=== PATIENT | female | born 1970 | race Caucasian/White ===

== ENCOUNTER → 2020-08-24 | Outpatient (CLI) | payer MEDICARE, MEDICAID ==
[~2020-08-24] MED LIST: AMLODIPINE BESYL5 MG PO; ATORVASTATIN CA40 MG PO; BRIMONIDINE TAR10 ML OP; BYDUREON B2 MG/0.85 SQ; FLUOXETINE HCL20 MG PO; GLIPIZIDE ER2.5 MG PO; LANTUS SOLOS100 U/ML SQ; LATANOPROST 2.2.5 ML OU; LEVOTHYROXIN0.025 MG PO; LOPRESSOR 225 MG/TAB PO; LOPRESSOR 550 MG/TAB PO; LOSARTAN POTAS100 MG PO; LOSARTAN POTASS25 MG PO; OMEPRAZOLE40 MG PO; TIMOLOL 0.5% OP10 ML OS
[2020-08-24 10:49] LABS: BASO # 0.05 (0.02-0.10); EOS # 0.11 (0.04-0.40); EOS % 1.9 % (1.0-5.0); HEMATOCRIT 39.7 % (37.0-47.0); HEMOGLOBIN 13.1 g/dL (12.5-16.0); LYMPH# 1.46 (1.50-4.00); MEAN CELL VOLUME 93 fl (78-100); MEAN CORPUSCULAR HEMOGLOBIN 31 pg (27-31); MEAN CORPUSCULAR HGB CONC 33 g/dL (33-37); MEAN PLATELET VOLUME 9.6 fl (7.4-10.4); MONO # 0.39 (0.20-0.80); NEU # 3.66 (1.40-6.50); PLATELET COUNT 266 K/mm3 (130-400); RED BLOOD COUNT 4.26 M/mm3 (4.10-5.30); RED CELL DISTRIBUTION WIDTH 12.8 % (11.5-14.5); WHITE BLOOD COUNT 5.7 K/mm3 (4.8-10.8)
[2020-08-24 10:58] LABS: ALBUMIN 3.3 g/dL (3.5-5.0); POTASSIUM 5.4 mmol/L (3.5-5.1)
[2020-08-24 10:59] LABS: CALCIUM 8.7 mg/dL (8.3-10.5)
[2020-08-24 11:01] LABS: TOTAL PROTEIN 6.2 g/dL (6.4-8.3)
[2020-08-24 11:03] LABS: TOTAL BILIRUBIN 0.3 mg/dL (0.2-1.2)
[2020-08-24 11:52] LABS: URINE APPEARANCE CLEAR; URINE COLOR YELLOW
[2020-08-24 11:53] LABS: URINE BILIRUBIN NEGATIVE (NEGATIVE); URINE BLOOD NEGATIVE (NEGATIVE); URINE KETONE NEGATIVE (NEGATIVE); URINE LEUKOCYTE ESTERASE NEGATIVE (NEGATIVE); URINE NITRATE NEGATIVE (NEGATIVE); URINE PROTEIN(semi-quant) 3+ mg/dL (NEGATIVE); URINE UROBILINOGEN NORMAL (NORMAL)
== END ==
LOC: LAB 10:18
PROVIDERS: Nurse Practitioner Primary Care
DX: Z13.6 Encounter for screening for cardiovascular disorders (principal); Z00.00 Encounter for general adult medical examination without abnormal findings; E11.9 Type 2 diabetes mellitus without complications

== ENCOUNTER 2021-01-31 15:06 | Emergency (ER) | payer MEDICARE, MEDICAID ==
[2021-01-31] MEDS ORDERED: AMLODIPINE BESYL5 MG PO (15:37)
[2021-01-31] MEDS ORDERED: ATORVASTATIN CA40 MG PO (15:37)
[2021-01-31] MEDS ORDERED: BRIMONIDINE TAR10 ML OP (15:38)
[2021-01-31] MEDS ORDERED: BYDUREON B2 MG/0.85 SQ (15:38)
[2021-01-31] MEDS ORDERED: FLUOXETINE HCL20 MG PO (15:38)
[2021-01-31] MEDS ORDERED: GLIPIZIDE ER2.5 MG PO (15:39)
[2021-01-31] MEDS ORDERED: LEVOTHYROXIN0.025 MG PO (15:40)
[2021-01-31] MEDS ORDERED: LATANOPROST 2.2.5 ML OU (15:40)
[2021-01-31] MEDS ORDERED: LOPRESSOR 550 MG/TAB PO (15:40)
[2021-01-31] MEDS ORDERED: LANTUS SOLOS100 U/ML SQ (15:40)
[2021-01-31] MEDS ORDERED: LOSARTAN POTAS100 MG PO (15:40)
[2021-01-31] MEDS ORDERED: LOSARTAN POTASS25 MG PO (15:40)
[2021-01-31] MEDS ORDERED: TIMOLOL 0.5% OP10 ML OS (15:41)
[2021-01-31] MEDS ORDERED: LOPRESSOR 225 MG/TAB PO (15:41)
[2021-01-31] MEDS ORDERED: OMEPRAZOLE40 MG PO (15:41)
[2021-01-31 15:42] LABS: BASO # 0.05 K/mm3 (0.02-0.10); EOS # 0.13 K/mm3 (0.04-0.40); HEMATOCRIT 34.1 % (37.0-47.0); HEMOGLOBIN 10.9 g/dL (12.5-16.0); LYMPH# 1.76 K/mm3 (1.50-4.00); MEAN CELL VOLUME 97 fl (78-100); MEAN CORPUSCULAR HEMOGLOBIN 31 pg (27-31); MEAN CORPUSCULAR HGB CONC 32 g/dL (33-37); MEAN PLATELET VOLUME 9.1 fl (7.4-10.4); MONO # 0.52 K/mm3 (0.20-0.80); NEU # 4.02 K/mm3 (1.40-6.50); PLATELET COUNT 253 K/mm3 (130-400); RED BLOOD COUNT 3.52 M/mm3 (4.10-5.30); RED CELL DISTRIBUTION WIDTH 12.8 % (11.5-14.5); WHITE BLOOD COUNT 6.5 K/mm3 (4.8-10.8)
[2021-01-31 15:57] LABS: ALBUMIN 3.1 g/dL (3.5-5.0); POTASSIUM 4.9 mmol/L (3.5-5.1); SODIUM 138 mmol/L (136-145)
[2021-01-31 15:58] LABS: CALCIUM 8.2 mg/dL (8.3-10.5)
[2021-01-31 15:59] LABS: GLUCOSE 284 mg/dL (65-105)
[2021-01-31 16:00] LABS: TOTAL PROTEIN 5.6 g/dL (6.4-8.3)
[2021-01-31 16:01] LABS: CARBON DIOXIDE 21 mmol/L (22-29); TOTAL BILIRUBIN 0.2 mg/dL (0.2-1.2)
[2021-01-31 16:05] LABS: AST-SGOT 15 U/L (5-34)
[2021-01-31 16:06] LABS: ALT/SGPT 17 U/L (0-55)
[2021-01-31 16:14] LABS: TROPONIN-I < 0.03 ng/mL (<0.030)
[2021-01-31 17:30] LABS: PH-URINE 6.5 (5.0 - 8.0); URINE APPEARANCE CLEAR; URINE BILIRUBIN NEGATIVE (NEGATIVE); URINE BLOOD TRACE (NEGATIVE); URINE COLOR LIGHT YELLOW; URINE KETONE NEGATIVE (NEGATIVE); URINE LEUKOCYTE ESTERASE NEGATIVE (NEGATIVE); URINE NITRATE NEGATIVE (NEGATIVE); URINE PROTEIN(semi-quant) 2+ mg/dL (NEGATIVE); URINE UROBILINOGEN NORMAL (NORMAL); URINE WBC 0-1 /hpf (0-3)
[2021-01-31 18:20] VITALS: BP 176/94
== END 2021-01-31 18:15 | disposition home or self-care (01) ==
LOC: ED 15:06
PROVIDERS: Nurse Practitioner
DX: E11.22 Type 2 diabetes mellitus with diabetic chronic kidney disease (principal); N18.9 Chronic kidney disease, unspecified; Z79.4 Long term (current) use of insulin; Z79.84 Long term (current) use of oral hypoglycemic drugs

== ENCOUNTER → 2021-02-05 | Outpatient (CLI) | payer MEDICARE, MEDICAID ==
[2021-02-05 12:04] LABS: POTASSIUM 5.5 mmol/L (3.5-5.1)
[2021-02-05 12:05] LABS: CALCIUM 7.5 mg/dL (8.3-10.5)
[2021-02-05 12:06] LABS: TOTAL PROTEIN 5.2 g/dL (6.4-8.3)
[2021-02-05 12:08] LABS: TOTAL BILIRUBIN 0.2 mg/dL (0.2-1.2)
== END ==
LOC: LAB 11:40
PROVIDERS: Nurse Practitioner Primary Care
DX: E11.22 Type 2 diabetes mellitus with diabetic chronic kidney disease (principal); I12.9 Hypertensive chronic kidney disease with stage 1 through stage 4 chronic kidney disease, or unspecified chronic kidney disease; N18.9 Chronic kidney disease, unspecified

== ENCOUNTER → 2021-02-13 | Outpatient (CLI) | payer MEDICARE, MEDICAID ==
[2021-02-13 13:24] LABS: HEMATOCRIT 33.1 % (37.0-47.0); HEMOGLOBIN 10.4 g/dL (12.5-16.0); MEAN PLATELET VOLUME 9.6 fl (7.4-10.4); RED BLOOD COUNT 3.38 M/mm3 (4.10-5.30); RED CELL DISTRIBUTION WIDTH 12.9 % (11.5-14.5); WHITE BLOOD COUNT 6.5 K/mm3 (4.8-10.8)
[2021-02-13 13:35] LABS: POTASSIUM 5.6 mmol/L (3.5-5.1)
[2021-02-13 13:36] LABS: CALCIUM 7.8 mg/dL (8.3-10.5)
[2021-02-13 13:37] LABS: TOTAL PROTEIN 5.4 g/dL (6.4-8.3)
[2021-02-13 13:39] LABS: TOTAL BILIRUBIN 0.2 mg/dL (0.2-1.2)
== END ==
LOC: LAB 12:32
PROVIDERS: Nurse Practitioner Primary Care
DX: E11.22 Type 2 diabetes mellitus with diabetic chronic kidney disease (principal); I12.9 Hypertensive chronic kidney disease with stage 1 through stage 4 chronic kidney disease, or unspecified chronic kidney disease; N18.9 Chronic kidney disease, unspecified

== ENCOUNTER → 2021-03-04 | Outpatient (CLI) | payer MEDICARE, MEDICAID ==
[2021-03-04 12:33] LABS: CALCIUM 8.2 mg/dL (8.3-10.5)
== END ==
LOC: LAB 12:01
PROVIDERS: Nurse Practitioner Primary Care
DX: E11.22 Type 2 diabetes mellitus with diabetic chronic kidney disease (principal); I12.9 Hypertensive chronic kidney disease with stage 1 through stage 4 chronic kidney disease, or unspecified chronic kidney disease; N18.9 Chronic kidney disease, unspecified

== ENCOUNTER → 2021-03-07 | Outpatient (CLI) | payer MEDICARE, MEDICAID ==
[2021-03-07 12:41] LABS: POTASSIUM 4.6 mmol/L (3.5-5.1)
[2021-03-07 12:43] LABS: CALCIUM 7.7 mg/dL (8.3-10.5)
== END ==
LOC: LAB 12:17
PROVIDERS: Nurse Practitioner Primary Care
DX: E87.5 Hyperkalemia (principal)

== ENCOUNTER → 2021-03-19 | Outpatient (CLI) | payer MEDICARE, MEDICAID ==
[2021-03-19 09:38] LABS: POTASSIUM 4.4 mmol/L (3.5-5.1)
[2021-03-19 09:40] LABS: CALCIUM 7.8 mg/dL (8.3-10.5)
== END ==
LOC: LAB 09:23
PROVIDERS: Nurse Practitioner Primary Care
DX: Z01.89 Encounter for other specified special examinations (principal)

== ENCOUNTER → 2021-04-01 | Outpatient (CLI) | payer MEDICARE, MEDICAID ==
[2021-04-01 11:14] LABS: POTASSIUM 5.1 mmol/L (3.5-5.1)
[2021-04-01 11:16] LABS: CALCIUM 8.3 mg/dL (8.3-10.5)
== END ==
LOC: LAB 10:45
PROVIDERS: Nurse Practitioner Primary Care
DX: Z01.89 Encounter for other specified special examinations (principal)

== ENCOUNTER → 2021-04-09 | Outpatient (CLI) | payer MEDICARE, MEDICAID ==
[2021-04-09 13:31] LABS: POTASSIUM 5.1 mmol/L (3.5-5.1)
[2021-04-09 13:32] LABS: CALCIUM 8.5 mg/dL (8.3-10.5)
== END ==
LOC: LAB 10:23
PROVIDERS: Nurse Practitioner Primary Care
DX: E11.22 Type 2 diabetes mellitus with diabetic chronic kidney disease (principal); I12.9 Hypertensive chronic kidney disease with stage 1 through stage 4 chronic kidney disease, or unspecified chronic kidney disease; N18.9 Chronic kidney disease, unspecified

== ENCOUNTER → 2021-04-15 | Outpatient (CLI) | payer MEDICARE, MEDICAID ==
[2021-04-15 13:32] LABS: CALCIUM 8.1 mg/dL (8.3-10.5)
== END ==
LOC: LAB 13:07
PROVIDERS: Nurse Practitioner Primary Care
DX: E11.22 Type 2 diabetes mellitus with diabetic chronic kidney disease (principal); I12.9 Hypertensive chronic kidney disease with stage 1 through stage 4 chronic kidney disease, or unspecified chronic kidney disease; N18.9 Chronic kidney disease, unspecified

== ENCOUNTER → 2021-04-24 | Outpatient (CLI) | payer MEDICARE, MEDICAID ==
[2021-04-24 11:29] LABS: POTASSIUM 5.6 mmol/L (3.5-5.1)
[2021-04-24 11:31] LABS: CALCIUM 8.1 mg/dL (8.3-10.5)
== END ==
LOC: LAB 10:17
PROVIDERS: Nurse Practitioner Primary Care
DX: I12.9 Hypertensive chronic kidney disease with stage 1 through stage 4 chronic kidney disease, or unspecified chronic kidney disease (principal); E11.22 Type 2 diabetes mellitus with diabetic chronic kidney disease; N18.9 Chronic kidney disease, unspecified

== ENCOUNTER → 2021-04-29 | Outpatient (CLI) | payer MEDICARE, MEDICAID ==
[2021-04-29 11:42] LABS: POTASSIUM 4.4 mmol/L (3.5-5.1)
[2021-04-29 11:43] LABS: CALCIUM 7.7 mg/dL (8.3-10.5)
== END ==
LOC: LAB 10:26
PROVIDERS: Nurse Practitioner Primary Care
DX: E11.22 Type 2 diabetes mellitus with diabetic chronic kidney disease (principal); I12.9 Hypertensive chronic kidney disease with stage 1 through stage 4 chronic kidney disease, or unspecified chronic kidney disease; N18.9 Chronic kidney disease, unspecified

== ENCOUNTER 2021-05-06 15:21 | Emergency (ER) | payer MEDICARE, MEDICAID ==
[~2021-05-06] VITALS: Wt 85.4 kg
[~2021-05-06 15:21] MED LIST changes: -FUROSEMIDE20 MG PO; -HCTZ 25MG25 MG PO; -TRULICITY0.75 MG/0. SC
[2021-05-06 15:39] LABS: BASO # 0.03 K/mm3 (0.02-0.10); EOS # 0.09 K/mm3 (0.04-0.40); EOS % 1.4 % (1.0-5.0); HEMATOCRIT 35.5 % (37.0-47.0); HEMOGLOBIN 11.9 g/dL (12.5-16.0); LYMPH# 1.52 K/mm3 (1.50-4.00); MEAN CELL VOLUME 91 fl (78-100); MEAN CORPUSCULAR HEMOGLOBIN 30 pg (27-31); MEAN CORPUSCULAR HGB CONC 34 g/dL (33-37); MEAN PLATELET VOLUME 9.7 fl (7.4-10.4); MONO # 0.45 K/mm3 (0.20-0.80); NEU # 4.41 K/mm3 (1.40-6.50); PLATELET COUNT 255 K/mm3 (130-400); RED BLOOD COUNT 3.92 M/mm3 (4.10-5.30); RED CELL DISTRIBUTION WIDTH 12.3 % (11.5-14.5); WHITE BLOOD COUNT 6.5 K/mm3 (4.8-10.8)
[2021-05-06] MEDS ORDERED: FUROSEMIDE20 MG PO (15:44)
[2021-05-06] MEDS ORDERED: TRULICITY0.75 MG/0. SC (15:44)
[2021-05-06] MEDS ORDERED: HCTZ 25MG25 MG PO (15:44)
[2021-05-06 15:47] LABS: ALBUMIN 3.3 g/dL (3.5-5.0); POTASSIUM 5.2 mmol/L (3.5-5.1)
[2021-05-06 15:48] LABS: CALCIUM 8.3 mg/dL (8.3-10.5)
[2021-05-06 15:49] LABS: TOTAL PROTEIN 6.3 g/dL (6.4-8.3)
[2021-05-06 16:02] LABS: TOTAL BILIRUBIN 0.1 mg/dL (0.2-1.2)
[2021-05-06 16:23] LABS: URINE WBC 0 /hpf (0-3)
[2021-05-06 16:41] LABS: URINE APPEARANCE CLEAR; URINE BILIRUBIN NEGATIVE (NEGATIVE); URINE BLOOD TRACE (NEGATIVE); URINE COLOR YELLOW; URINE KETONE NEGATIVE (NEGATIVE); URINE LEUKOCYTE ESTERASE NEGATIVE (NEGATIVE); URINE NITRATE NEGATIVE (NEGATIVE); URINE PROTEIN(semi-quant) 2+ (NEGATIVE); URINE UROBILINOGEN NORMAL (NORMAL)
[2021-05-06 16:42] LABS: URINE MUCUS PRESENT (NOT PRESENT)
[2021-05-06 18:23] LABS: ALBUMIN 2.9 g/dL (3.5-5.0)
[2021-05-06 18:24] LABS: POTASSIUM 5.1 mmol/L (3.5-5.1)
[2021-05-06 18:25] LABS: CALCIUM 7.8 mg/dL (8.3-10.5)
[2021-05-06 18:26] LABS: TOTAL PROTEIN 5.5 g/dL (6.4-8.3)
[2021-05-06 18:35] LABS: TOTAL BILIRUBIN 0.1 mg/dL (0.2-1.2)
[2021-05-06 19:10] VITALS: BP 163/91
== END 2021-05-06 19:10 | disposition home or self-care (01) ==
LOC: ED 15:21
PROVIDERS: Nurse Practitioner
DX: E86.0 Dehydration (principal); E11.22 Type 2 diabetes mellitus with diabetic chronic kidney disease; N18.9 Chronic kidney disease, unspecified; E11.65 Type 2 diabetes mellitus with hyperglycemia; Z79.4 Long term (current) use of insulin; Z79.84 Long term (current) use of oral hypoglycemic drugs
CPT/HCPCS: J1815; J7030

== ENCOUNTER → 2021-05-06 | Outpatient (CLI) | payer MEDICARE, MEDICAID ==
[~2021-05-06] MED LIST changes: +FUROSEMIDE20 MG PO; +HCTZ 25MG25 MG PO; +TRULICITY0.75 MG/0. SC
[2021-05-06 12:51] LABS: POTASSIUM 5.5 mmol/L (3.5-5.1)
== END ==
LOC: LAB 10:09
PROVIDERS: Nurse Practitioner Primary Care
DX: E11.22 Type 2 diabetes mellitus with diabetic chronic kidney disease (principal); I12.9 Hypertensive chronic kidney disease with stage 1 through stage 4 chronic kidney disease, or unspecified chronic kidney disease; N18.9 Chronic kidney disease, unspecified

== ENCOUNTER 2021-05-08 16:04 | Observation (INO) | payer MEDICARE, MEDICAID ==
[~2021-05-08] VITALS: Ht 160 cm; Wt 85.4 kg
[2021-05-08 17:38] LABS: URINE APPEARANCE CLEAR; URINE BILIRUBIN NEGATIVE (NEGATIVE); URINE BLOOD TRACE (NEGATIVE); URINE COLOR YELLOW; URINE KETONE NEGATIVE (NEGATIVE); URINE LEUKOCYTE ESTERASE NEGATIVE (NEGATIVE); URINE NITRATE NEGATIVE (NEGATIVE); URINE PROTEIN(semi-quant) 3+ (NEGATIVE); URINE UROBILINOGEN NORMAL (NORMAL); URINE WBC 0-1 /hpf (0-3)
[2021-05-08 17:39] LABS: URINE MUCUS PRESENT (NOT PRESENT)
[2021-05-08 18:00] VITALS: BP 162/82
[2021-05-08 21:41] VITALS: BP 178/79
[2021-05-09 02:15] VITALS: BP 174/79
[2021-05-09 05:45] VITALS: BP 174/81
[2021-05-09 08:01] LABS: BASO # 0.03 K/mm3 (0.02-0.10); EOS # 0.12 K/mm3 (0.04-0.40); EOS % 1.6 % (1.0-5.0); HEMATOCRIT 36.4 % (37.0-47.0); LYMPH# 1.59 K/mm3 (1.50-4.00); MEAN CELL VOLUME 93 fl (78-100); MEAN CORPUSCULAR HEMOGLOBIN 31 pg (27-31); MEAN CORPUSCULAR HGB CONC 33 g/dL (33-37); MEAN PLATELET VOLUME 9.3 fl (7.4-10.4); MONO # 0.41 K/mm3 (0.20-0.80); NEU # 5.23 K/mm3 (1.40-6.50); PLATELET COUNT 289 K/mm3 (130-400); RED BLOOD COUNT 3.92 M/mm3 (4.10-5.30); RED CELL DISTRIBUTION WIDTH 12.4 % (11.5-14.5); WHITE BLOOD COUNT 7.4 K/mm3 (4.8-10.8)
[2021-05-09 08:03] LABS: POTASSIUM 5.3 mmol/L (3.5-5.1)
[2021-05-09 08:04] LABS: CALCIUM 8.7 mg/dL (8.3-10.5)
[2021-05-09 08:05] LABS: TOTAL PROTEIN 5.8 g/dL (6.4-8.3)
[2021-05-09 08:07] LABS: TOTAL BILIRUBIN 0.2 mg/dL (0.2-1.2)
[2021-05-09 09:35] VITALS: BP 171/90
== END 2021-05-09 12:00 | disposition home health service (06) ==
LOC: ED 16:04 → MED/SURG 17:56 → ED 17:56 → MED/SURG 05-09 12:00
PROVIDERS: ADMIT Physician Assistant
DX: E11.65 Type 2 diabetes mellitus with hyperglycemia (principal); E11.22 Type 2 diabetes mellitus with diabetic chronic kidney disease; I12.9 Hypertensive chronic kidney disease with stage 1 through stage 4 chronic kidney disease, or unspecified chronic kidney disease; N18.9 Chronic kidney disease, unspecified; E86.0 Dehydration; F79 Unspecified intellectual disabilities; Z79.899 Other long term (current) drug therapy; Z79.4 Long term (current) use of insulin
CPT/HCPCS: G0378; J1815; J7030

== ENCOUNTER → 2021-05-08 | Outpatient (CLI) | payer MEDICARE, MEDICAID ==
[~2021-05-08] MED LIST changes: +FUROSEMIDE20 MG PO; +HCTZ 25MG25 MG PO; +TRULICITY0.75 MG/0. SC
[2021-05-08 15:12] LABS: BASO # 0.04 K/mm3 (0.02-0.10); EOS # 0.14 K/mm3 (0.04-0.40); EOS % 2.2 % (1.0-5.0); HEMATOCRIT 34.4 % (37.0-47.0); HEMOGLOBIN 11.3 g/dL (12.5-16.0); LYMPH# 1.62 K/mm3 (1.50-4.00); MEAN CELL VOLUME 94 fl (78-100); MEAN CORPUSCULAR HEMOGLOBIN 31 pg (27-31); MEAN CORPUSCULAR HGB CONC 33 g/dL (33-37); MEAN PLATELET VOLUME 9.6 fl (7.4-10.4); MONO # 0.45 K/mm3 (0.20-0.80); NEU # 4.22 K/mm3 (1.40-6.50); PLATELET COUNT 267 K/mm3 (130-400); RED BLOOD COUNT 3.68 M/mm3 (4.10-5.30); RED CELL DISTRIBUTION WIDTH 12.2 % (11.5-14.5); WHITE BLOOD COUNT 6.5 K/mm3 (4.8-10.8)
[2021-05-08 15:20] LABS: POTASSIUM 5.1 mmol/L (3.5-5.1)
[2021-05-08 15:21] LABS: CALCIUM 8.3 mg/dL (8.3-10.5)
[2021-05-08 16:00] LABS: MAGNESIUM 1.37 mg/dL (1.60-2.60)
== END ==
LOC: LAB 14:22
PROVIDERS: Nurse Practitioner Family
DX: E11.9 Type 2 diabetes mellitus without complications (principal); Z79.4 Long term (current) use of insulin

== ENCOUNTER → 2021-05-10 | Outpatient (CLI) | payer MEDICARE, MEDICAID ==
[2021-05-10 11:11] LABS: POTASSIUM 5.7 mmol/L (3.5-5.1)
[2021-05-10 11:13] LABS: CALCIUM 8.2 mg/dL (8.3-10.5)
== END ==
LOC: LAB 10:14
PROVIDERS: Nurse Practitioner Primary Care
DX: E11.22 Type 2 diabetes mellitus with diabetic chronic kidney disease (principal); I12.9 Hypertensive chronic kidney disease with stage 1 through stage 4 chronic kidney disease, or unspecified chronic kidney disease; N18.9 Chronic kidney disease, unspecified

== ENCOUNTER → 2021-05-14 | Outpatient (CLI) | payer MEDICARE, MEDICAID ==
[2021-05-14 13:25] LABS: POTASSIUM 4.1 mmol/L (3.5-5.1)
[2021-05-14 13:26] LABS: CALCIUM 8.5 mg/dL (8.3-10.5)
== END ==
LOC: LAB 10:06
PROVIDERS: Nurse Practitioner Primary Care
DX: E11.22 Type 2 diabetes mellitus with diabetic chronic kidney disease (principal); I12.9 Hypertensive chronic kidney disease with stage 1 through stage 4 chronic kidney disease, or unspecified chronic kidney disease; N18.9 Chronic kidney disease, unspecified; H40.9 Unspecified glaucoma; E78.5 Hyperlipidemia, unspecified; E03.9 Hypothyroidism, unspecified; J30.2 Other seasonal allergic rhinitis; E55.9 Vitamin D deficiency, unspecified; K21.9 Gastro-esophageal reflux disease without esophagitis; Z79.899 Other long term (current) drug therapy; Z79.4 Long term (current) use of insulin

== ENCOUNTER → 2021-05-21 | Outpatient (CLI) | payer MEDICARE, MEDICAID ==
[2021-05-21 12:53] LABS: POTASSIUM 5.2 mmol/L (3.5-5.1)
[2021-05-21 12:54] LABS: CALCIUM 7.7 mg/dL (8.3-10.5)
== END ==
LOC: LAB 11:58
PROVIDERS: Nurse Practitioner Primary Care
DX: E11.22 Type 2 diabetes mellitus with diabetic chronic kidney disease (principal); I12.9 Hypertensive chronic kidney disease with stage 1 through stage 4 chronic kidney disease, or unspecified chronic kidney disease; N18.9 Chronic kidney disease, unspecified; H40.9 Unspecified glaucoma; E78.5 Hyperlipidemia, unspecified; E03.9 Hypothyroidism, unspecified; J30.2 Other seasonal allergic rhinitis; E55.9 Vitamin D deficiency, unspecified; K21.9 Gastro-esophageal reflux disease without esophagitis; Z79.899 Other long term (current) drug therapy; Z79.4 Long term (current) use of insulin

== ENCOUNTER → 2021-05-28 | Outpatient (CLI) | payer MEDICARE, MEDICAID ==
[2021-05-28 11:42] LABS: POTASSIUM 4.7 mmol/L (3.5-5.1)
[2021-05-28 11:43] LABS: CALCIUM 8.2 mg/dL (8.3-10.5)
== END ==
LOC: LAB 11:12
PROVIDERS: Nurse Practitioner Primary Care
DX: E11.22 Type 2 diabetes mellitus with diabetic chronic kidney disease (principal); I12.9 Hypertensive chronic kidney disease with stage 1 through stage 4 chronic kidney disease, or unspecified chronic kidney disease; N18.9 Chronic kidney disease, unspecified; H40.9 Unspecified glaucoma; E78.5 Hyperlipidemia, unspecified; E03.9 Hypothyroidism, unspecified; J30.2 Other seasonal allergic rhinitis; E55.9 Vitamin D deficiency, unspecified; K21.9 Gastro-esophageal reflux disease without esophagitis; Z79.899 Other long term (current) drug therapy; Z79.4 Long term (current) use of insulin

== ENCOUNTER → 2021-06-04 | Outpatient (CLI) | payer MEDICARE, MEDICAID ==
[2021-06-04 11:18] LABS: POTASSIUM 4.9 mmol/L (3.5-5.1)
[2021-06-04 11:19] LABS: CALCIUM 8.5 mg/dL (8.3-10.5)
== END ==
LOC: LAB 10:37
PROVIDERS: Nurse Practitioner Primary Care
DX: E11.22 Type 2 diabetes mellitus with diabetic chronic kidney disease (principal)

== ENCOUNTER → 2021-06-11 | Outpatient (CLI) | payer MEDICARE, MEDICAID ==
[2021-06-11 11:39] LABS: POTASSIUM 5.2 mmol/L (3.5-5.1)
[2021-06-11 11:40] LABS: CALCIUM 8.1 mg/dL (8.3-10.5)
== END ==
LOC: LAB 10:23
PROVIDERS: Nurse Practitioner Primary Care
DX: E11.22 Type 2 diabetes mellitus with diabetic chronic kidney disease (principal); I12.9 Hypertensive chronic kidney disease with stage 1 through stage 4 chronic kidney disease, or unspecified chronic kidney disease; N18.9 Chronic kidney disease, unspecified; H40.9 Unspecified glaucoma; E78.5 Hyperlipidemia, unspecified; E03.9 Hypothyroidism, unspecified; J30.2 Other seasonal allergic rhinitis; E55.9 Vitamin D deficiency, unspecified; K21.9 Gastro-esophageal reflux disease without esophagitis; Z79.899 Other long term (current) drug therapy; Z79.4 Long term (current) use of insulin

== ENCOUNTER → 2021-06-20 | Outpatient (CLI) | payer MEDICARE, MEDICAID ==
[2021-06-20 10:21] LABS: CALCIUM 8.2 mg/dL (8.3-10.5)
[2021-06-20 11:04] LABS: POTASSIUM 5.8 mmol/L (3.5-5.1)
== END ==
LOC: LAB 09:45
PROVIDERS: Nurse Practitioner Primary Care
DX: E11.22 Type 2 diabetes mellitus with diabetic chronic kidney disease (principal); I12.9 Hypertensive chronic kidney disease with stage 1 through stage 4 chronic kidney disease, or unspecified chronic kidney disease; N18.9 Chronic kidney disease, unspecified; H40.9 Unspecified glaucoma; E78.5 Hyperlipidemia, unspecified; E03.9 Hypothyroidism, unspecified; J30.2 Other seasonal allergic rhinitis; E55.9 Vitamin D deficiency, unspecified; K21.9 Gastro-esophageal reflux disease without esophagitis; Z79.899 Other long term (current) drug therapy; Z79.4 Long term (current) use of insulin

== ENCOUNTER → 2021-06-24 | Outpatient (CLI) | payer MEDICARE, MEDICAID ==
[2021-06-24 11:44] LABS: POTASSIUM 5.2 mmol/L (3.5-5.1)
[2021-06-24 11:46] LABS: CALCIUM 8.4 mg/dL (8.3-10.5)
== END ==
LOC: LAB 10:18
PROVIDERS: Nurse Practitioner Primary Care
DX: E11.22 Type 2 diabetes mellitus with diabetic chronic kidney disease (principal); I12.9 Hypertensive chronic kidney disease with stage 1 through stage 4 chronic kidney disease, or unspecified chronic kidney disease; N18.9 Chronic kidney disease, unspecified; H40.9 Unspecified glaucoma; E78.5 Hyperlipidemia, unspecified; E03.9 Hypothyroidism, unspecified; J30.2 Other seasonal allergic rhinitis; E55.9 Vitamin D deficiency, unspecified; K21.9 Gastro-esophageal reflux disease without esophagitis; Z79.899 Other long term (current) drug therapy; Z79.4 Long term (current) use of insulin

== ENCOUNTER → 2021-07-02 | Outpatient (CLI) | payer MEDICARE, MEDICAID ==
[2021-07-02 12:06] LABS: POTASSIUM 5.1 mmol/L (3.5-5.1)
[2021-07-02 12:07] LABS: CALCIUM 8.1 mg/dL (8.3-10.5)
== END ==
LOC: LAB 10:53
PROVIDERS: Nurse Practitioner Primary Care
DX: E11.22 Type 2 diabetes mellitus with diabetic chronic kidney disease (principal); I12.9 Hypertensive chronic kidney disease with stage 1 through stage 4 chronic kidney disease, or unspecified chronic kidney disease; N18.9 Chronic kidney disease, unspecified; H40.9 Unspecified glaucoma; E78.5 Hyperlipidemia, unspecified; E03.9 Hypothyroidism, unspecified; J30.2 Other seasonal allergic rhinitis; E55.9 Vitamin D deficiency, unspecified; K21.9 Gastro-esophageal reflux disease without esophagitis; Z79.899 Other long term (current) drug therapy; Z79.4 Long term (current) use of insulin

== ENCOUNTER → 2021-07-09 | Outpatient (CLI) | payer MEDICARE, MEDICAID ==
[2021-07-09 11:44] LABS: POTASSIUM 5.1 mmol/L (3.5-5.1)
== END ==
LOC: LAB 11:19
PROVIDERS: Nurse Practitioner Primary Care
DX: E11.22 Type 2 diabetes mellitus with diabetic chronic kidney disease (principal); I12.9 Hypertensive chronic kidney disease with stage 1 through stage 4 chronic kidney disease, or unspecified chronic kidney disease; N18.9 Chronic kidney disease, unspecified

== ENCOUNTER → 2021-07-16 | Outpatient (CLI) | payer MEDICARE, MEDICAID ==
[2021-07-16 11:05] LABS: POTASSIUM 4.5 mmol/L (3.5-5.1)
[2021-07-16 11:06] LABS: CALCIUM 8.3 mg/dL (8.3-10.5)
== END ==
LOC: LAB 10:30
PROVIDERS: Nurse Practitioner Primary Care
DX: E11.22 Type 2 diabetes mellitus with diabetic chronic kidney disease (principal); I12.9 Hypertensive chronic kidney disease with stage 1 through stage 4 chronic kidney disease, or unspecified chronic kidney disease; N18.9 Chronic kidney disease, unspecified; E78.5 Hyperlipidemia, unspecified; E03.9 Hypothyroidism, unspecified; K21.9 Gastro-esophageal reflux disease without esophagitis; Z79.899 Other long term (current) drug therapy; Z79.4 Long term (current) use of insulin

== ENCOUNTER → 2021-07-22 | Outpatient (CLI) | payer MEDICARE, MEDICAID ==
[2021-07-22 13:19] LABS: POTASSIUM 4.7 mmol/L (3.5-5.1)
[2021-07-22 13:20] LABS: CALCIUM 7.8 mg/dL (8.3-10.5)
== END ==
LOC: LAB 12:30
PROVIDERS: Nurse Practitioner Primary Care
DX: E11.22 Type 2 diabetes mellitus with diabetic chronic kidney disease (principal); I12.9 Hypertensive chronic kidney disease with stage 1 through stage 4 chronic kidney disease, or unspecified chronic kidney disease; N18.9 Chronic kidney disease, unspecified; H40.9 Unspecified glaucoma; E78.5 Hyperlipidemia, unspecified; E03.9 Hypothyroidism, unspecified; J30.2 Other seasonal allergic rhinitis; E55.9 Vitamin D deficiency, unspecified; K21.9 Gastro-esophageal reflux disease without esophagitis; Z79.899 Other long term (current) drug therapy; Z79.4 Long term (current) use of insulin

== ENCOUNTER → 2021-08-06 | Outpatient (CLI) | payer MEDICARE, MEDICAID ==
[2021-08-06 13:55] LABS: POTASSIUM 4.9 mmol/L (3.5-5.1)
== END ==
LOC: LAB 13:34
PROVIDERS: Nurse Practitioner Primary Care
DX: E11.22 Type 2 diabetes mellitus with diabetic chronic kidney disease (principal); I12.9 Hypertensive chronic kidney disease with stage 1 through stage 4 chronic kidney disease, or unspecified chronic kidney disease; N18.9 Chronic kidney disease, unspecified

== ENCOUNTER → 2021-08-20 | Outpatient (CLI) | payer MEDICARE, MEDICAID ==
[2021-08-20 14:29] LABS: POTASSIUM 5.2 mmol/L (3.5-5.1)
[2021-08-20 14:30] LABS: CALCIUM 8.1 mg/dL (8.3-10.5)
== END ==
LOC: LAB 13:52
PROVIDERS: Nurse Practitioner Primary Care
DX: E11.22 Type 2 diabetes mellitus with diabetic chronic kidney disease (principal); I12.9 Hypertensive chronic kidney disease with stage 1 through stage 4 chronic kidney disease, or unspecified chronic kidney disease; N18.9 Chronic kidney disease, unspecified

== ENCOUNTER → 2021-09-03 | Outpatient (CLI) | payer MEDICARE, MEDICAID ==
[2021-09-03 15:25] LABS: POTASSIUM 4.8 mmol/L (3.5-5.1)
[2021-09-03 15:27] LABS: CALCIUM 7.5 mg/dL (8.3-10.5)
== END ==
LOC: LAB 14:50
PROVIDERS: Nurse Practitioner Primary Care
DX: I12.9 Hypertensive chronic kidney disease with stage 1 through stage 4 chronic kidney disease, or unspecified chronic kidney disease (principal); E11.22 Type 2 diabetes mellitus with diabetic chronic kidney disease; N18.9 Chronic kidney disease, unspecified

== ENCOUNTER → 2021-10-02 | Outpatient (CLI) | payer MEDICARE, MEDICAID ==
[~2021-10-02] MED LIST changes: +MACROBID 100 M100 MG PO
[2021-10-02 11:48] LABS: POTASSIUM 5.3 mmol/L (3.5-5.1)
[2021-10-02 11:49] LABS: CALCIUM 8.3 mg/dL (8.3-10.5)
== END ==
LOC: LAB 11:21
PROVIDERS: Nurse Practitioner Primary Care
DX: E11.22 Type 2 diabetes mellitus with diabetic chronic kidney disease (principal); I12.9 Hypertensive chronic kidney disease with stage 1 through stage 4 chronic kidney disease, or unspecified chronic kidney disease; N18.9 Chronic kidney disease, unspecified

== ENCOUNTER → 2021-10-14 | Outpatient (CLI) | payer MEDICARE, MEDICAID ==
[2021-10-14 13:28] LABS: POTASSIUM 5.1 mmol/L (3.5-5.1)
[2021-10-14 13:29] LABS: CALCIUM 8.2 mg/dL (8.3-10.5)
== END ==
LOC: LAB 12:53
PROVIDERS: Nurse Practitioner Primary Care
DX: E11.22 Type 2 diabetes mellitus with diabetic chronic kidney disease (principal); I12.9 Hypertensive chronic kidney disease with stage 1 through stage 4 chronic kidney disease, or unspecified chronic kidney disease; N18.9 Chronic kidney disease, unspecified

== ENCOUNTER 2021-10-23 15:13 | Emergency (ER) | payer MEDICARE, MEDICAID ==
[~2021-10-23] VITALS: Ht 162.6 cm; Wt 79.5 kg
[2021-10-23 16:28] LABS: BASO # 0.04 K/mm3 (0.02-0.10); EOS # 0.05 K/mm3 (0.04-0.40); EOS % 0.7 % (1.0-5.0); HEMATOCRIT 38.7 % (37.0-47.0); HEMOGLOBIN 12.7 g/dL (12.5-16.0); MEAN CELL VOLUME 91 fl (78-100); MEAN CORPUSCULAR HEMOGLOBIN 30 pg (27-31); MEAN CORPUSCULAR HGB CONC 33 g/dL (33-37); MEAN PLATELET VOLUME 9.3 fl (7.4-10.4); MONO # 0.46 K/mm3 (0.20-0.80); NEU # 5.57 K/mm3 (1.40-6.50); PLATELET COUNT 291 K/mm3 (130-400); RED BLOOD COUNT 4.26 M/mm3 (4.10-5.30); RED CELL DISTRIBUTION WIDTH 13.1 % (11.5-14.5); WHITE BLOOD COUNT 7.5 K/mm3 (4.8-10.8)
[2021-10-23 16:48] LABS: ALBUMIN 3.4 g/dL (3.5-5.0); POTASSIUM 4.1 mmol/L (3.5-5.1)
[2021-10-23 16:49] LABS: CALCIUM 8.7 mg/dL (8.3-10.5)
[2021-10-23 16:50] LABS: TOTAL PROTEIN 6.7 g/dL (6.4-8.3)
[2021-10-23 16:52] LABS: TOTAL BILIRUBIN 0.4 mg/dL (0.2-1.2)
[2021-10-23 20:22] VITALS: BP 149/89
== END 2021-10-23 20:23 | disposition home or self-care (01) ==
LOC: ED 15:13
PROVIDERS: Physician Assistant
DX: E11.22 Type 2 diabetes mellitus with diabetic chronic kidney disease (principal); N18.9 Chronic kidney disease, unspecified; E86.0 Dehydration; F17.210 Nicotine dependence, cigarettes, uncomplicated
CPT/HCPCS: J7030

== ENCOUNTER → 2021-10-28 | Outpatient (CLI) | payer MEDICARE, MEDICAID ==
[2021-10-28 16:28] LABS: POTASSIUM 5.1 mmol/L (3.5-5.1)
[2021-10-28 16:30] LABS: CALCIUM 7.8 mg/dL (8.3-10.5)
== END ==
LOC: LAB 15:48
PROVIDERS: Nurse Practitioner Primary Care
DX: I12.9 Hypertensive chronic kidney disease with stage 1 through stage 4 chronic kidney disease, or unspecified chronic kidney disease (principal); N18.9 Chronic kidney disease, unspecified; E11.22 Type 2 diabetes mellitus with diabetic chronic kidney disease